=== PATIENT | male | born 1975 ===

== ENCOUNTER 2017-11-13 12:29 | Emergency (ER) | payer OTHER ==
[2017-11-13 12:47] VITALS: BP 144/94; PULSE 80; RESP 16; TEMP 98.1; O2SAT 98
--- NOTE | 2017-11-13 14:26 | ED PDOC ---
HPI: Abdomen Time Seen by Provider: 11/13/17 13:12 Chief Complaint (Nursing): Abdominal Pain Chief Complaint (Provider): Abdominal Pain, Testicular Pain History Per: Patient History/Exam Limitations: no limitations Onset/Duration Of Symptoms: Days (x6) Current Symptoms Are (Timing): Still Present Additional Complaint(s): 42 y/o male with a PMHx of diabetes and asthma presenting for evaluation of bilateral testicular pain and superpubic discomfort x6 days. Patient denies any hematuria, dysuria, fever, discharge, nausea, vomiting, or history of STDs. PMD: [facility] Past Medical History Reviewed: Historical Data, Nursing Documentation, Vital Signs Vital Signs: Last Vital Signs Temp 98.1 F 11/13/17 12:44 Pulse 80 11/13/17 12:44 Resp 16 11/13/17 12:44 BP 144/94 H 11/13/17 12:44 Pulse Ox 98 11/13/17 16:26 - Medical History PMH: Asthma, Depression - Surgical History Surgical History: No Surg Hx - Family History Family History: States: Unknown Family Hx - Social History Current smoker - smoking cessation education provided: No Alcohol: Occasional Drugs: Denies - Allergies Allergies/Adverse Reactions: Allergies Allergy/AdvReac Type Severity Reaction Status Date / Time No Known Allergies Allergy Verified 11/13/17 12:44 Review of Systems ROS Statement: Except As Marked, All Systems Reviewed And Found Negative Constitutional: Negative for: Fever Gastrointestinal: Positive for: Abdominal Pain. Negative for: Nausea, Vomiting Genitourinary Male: Positive for: Other (testicular pain). Negative for: Dysuria, Hematuria, Penile Discharge Physical Exam - Reviewed Nursing Documentation Reviewed: Yes Vital Signs Reviewed: Yes - Physical Exam Appears: Positive for: Non-toxic, No Acute Distress Head Exam: Positive for: ATRAUMATIC, NORMAL INSPECTION, NORMOCEPHALIC Skin: Positive for: Normal Color, Warm, Dry. Negative for: Rash Eye Exam: Positive for: EOMI, Normal appearance, PERRL Neck: Positive for: Normal, Painless ROM, Supple Cardiovascular/Chest: Positive for: Regular Rate, Rhythm. Negative for: Murmur Respiratory: Positive for: Normal Breath Sounds. Negative for: Respiratory Distress Gastrointestinal/Abdominal: Positive for: Normal Exam, Soft. Negative for: Tenderness Male Genital Exam: Positive for: other (mild testicular swelling, uncircumcised penis). Negative for: erythema, urethral discharge Back: Positive for: Normal Inspection. Negative for: L CVA Tenderness, R CVA Tenderness, Vertebral Tenderness Extremity: Positive for: Normal ROM. Negative for: Pedal Edema, Deformity Neurologic/Psych: Positive for: Alert, Oriented (x3). Negative for: Motor/ Sensory Deficits - Laboratory Results Result Diagrams: 11/13/17 14:47 11/13/17 14:47 - ECG O2 Sat by Pulse Oximetry: 98 (RA) Pulse Ox Interpretation: Normal Medical Decision Making Medical Decision Makin:02 Plan: -CMP -CBC -Urine C&S -Urinalysis -US Testes Duplex Complete -Reevaluation 15:45 US TESTES DUPLEX FINDINGS: RIGHT TESTICLE: Measures 4.1 x 3.7 x 2.1 cm. Normal echotexture and flow. RIGHT EPIDIDYMIS: Epididymal head measures 0.8 x 0.7 x 0.8 cm. Grossly unremarkable appearance with normal flow. LEFT TESTICLE: Measures 4.1 x 3.4 x 2.3 cm. Normal echotexture and flow. LEFT EPIDIDYMIS: Epididymal head measures 1.0 x 1.4 x 1.1 cm. There is a 1.0 x 1.2 by a 0.6 cm simple cyst in the head of the epididymis, otherwise the epididymis is grossly appearance with normal flow. HYDROCELE: There is a small right hydrocele. No left hydrocele. VARICOCELE: None. OTHER FINDINGS: None. IMPRESSION: No evidence for testicular mass or torsion. Small right hydrocele. 1.2 cm simple cyst in the head of the left epididymis. 17:45 CT ABDOMEN AND PELVIS FINDINGS: LOWER THORAX: The visualized lungs are clear. LIVER: Normal in size. No intrahepatic ductal dilatation. GALLBLADDER AND BILE DUCTS: No calcified gallstones. No biliary dilatation PANCREAS: Normal in size. No ductal dilatation. SPLEEN: Normal in size. ADRENALS: Normal in size. No discrete nodule. KIDNEYS AND URETERS: Normal in size without nephrolithiasis. No hydronephrosis. VASCULATURE: No aortic aneurysm. BOWEL: The small bowel loops are normal in caliber. There is large amount of stool in the colon. No bowel dilatation or wall thickening. No bowel obstruction. APPENDIX: Normal appendix. PERITONEUM: No free fluid. No free air. LYMPH NODES: No enlarged lymph nodes. BLADDER: Well distended and grossly normal in appearance. REPRODUCTIVE: The uterus is normal in size BONES: No acute fracture. OTHER FINDINGS: None. IMPRESSION: No acute abdominal or pelvic abnormality. Constipation. No evidence for bowel obstruction. Scribe Attestation: Documented by Alfredo Jasso, acting as a scribe for Ludy Noonan MD. Provider Scribe Attestation: All medical record entries made by the Scribe were at my direction and personally dictated by me. I have reviewed the chart and agree that the record accurately reflects my personal performance of the history, physical exam, medical decision making, and the department course for this patient. I have also personally directed, reviewed, and agree with the discharge instructions and disposition. Disposition - Clinical Impression Clinical Impression: Abdominal pain - Disposition Condition: IMPROVED Additional Instructions: follow up with the clinic in 2 days for reevaluation eat high fiber diet follow up with urologist for testicular pain return to ED with any worsening or concerning symptoms Instructions: Hydrocele, Constipation, Adult (DC) Forms: [employer] (Citizen [place]) Print Language: KAZAKH
[2017-11-13 14:56] LABS: BASO # 0.1 K/uL (0.0-0.2); EOS # 0.1 K/uL (0.0-0.7); EOS % 1.7 % (0.0-4.0); HEMOGLOBIN 14.6 g/dL (12.0-18.0); LYMPH # 1.7 K/uL (1.0-4.3); LYMPH % 23.7 % (20.0-40.0); MEAN CELL VOLUME 88.5 fl (80.0-94.0); MEAN CORPUSCULAR HEMOGLOBIN 31.1 pg (27.0-31.0); MEAN CORPUSCULAR HGB CONC 35.1 g/dL (33.0-37.0); MEAN PLATELET VOLUME 9.6 fl (7.2-11.7); MONO # 0.3 K/uL (0.0-0.8); MONO % 4.9 % (0.0-10.0); NEUT # 4.9 K/uL (1.8-7.0); NEUT % 68.7 % (50.0-75.0); NRBC % 0.1 % (0.0-0.0); RBC 4.68 Mil/uL (4.40-5.90); RED CELL DISTRIBUTION WIDTH 12.2 % (11.5-14.5); WHITE BLOOD COUNT 7.1 K/uL (4.8-10.8)
[2017-11-13 15:06] LABS: ALB/GLOB RATIO 1.3 (1.0-2.1); ALBUMIN 4.5 g/dL (3.5-5.0); ALT/SGPT 45 U/L (21-72); AST/SGOT 34 U/L (17-59); BLOOD UREA NITROGEN 19 mg/dl (9-20); CALCIUM 9.2 mg/dL (8.4-10.2); GFR AFRICAN-AMERICAN > 60; GFR NON-AFRICAN AMERICAN > 60
[2017-11-13 15:08] LABS: URINE BILIRUBIN NEGATIVE (NEGATIVE); URINE BLOOD NEGATIVE (NEGATIVE); URINE CLARITY SLIGHTY-CLOUDY (Clear); URINE COLOR YELLOW (YELLOW); URINE GLUCOSE (UA) 50 mg/dL (Normal); URINE LEUKOCYTE ESTERASE NEG Leu/uL (Negative); URINE PROTEIN NEGATIVE (NEGATIVE)
--- NOTE | 2017-11-13 15:47 | US ---
Date of service: 11/13/2017 HISTORY: bilateral testicular pain TECHNIQUE: Realtime sonography through the scrotum with color and doppler flow. COMPARISON: None Available. FINDINGS: RIGHT TESTICLE: Measures 4.1 x 3.7 x 2.1 cm. Normal echotexture and flow. RIGHT EPIDIDYMIS: Epididymal head measures 0.8 x 0.7 x 0.8 cm. Grossly unremarkable appearance with normal flow. LEFT TESTICLE: Measures 4.1 x 3.4 x 2.3 cm. Normal echotexture and flow. LEFT EPIDIDYMIS: Epididymal head measures 1.0 x 1.4 x 1.1 cm. There is a 1.0 x 1.2 by a 0.6 cm simple cyst in the head of the epididymis, otherwise the epididymis is grossly appearance with normal flow. HYDROCELE: There is a small right hydrocele. No left hydrocele. VARICOCELE: None. OTHER FINDINGS: None. IMPRESSION: No evidence for testicular mass or torsion. Small right hydrocele. 1.2 cm simple cyst in the head of the left epididymis.
--- NOTE | 2017-11-13 17:46 | CT ---
Date of service: 11/13/2017 PROCEDURE: CT Abdomen and Pelvis without intravenous contrast HISTORY: Lower abdominal pain COMPARISON: None. TECHNIQUE: CT scan of the abdomen and pelvis was performed without administration of intravenous contrast. Oral contrast was not administered. Coronal and sagittal reformatted images were obtained. . Radiation dose: Total exam DLP = 2401.44 mGy-cm. This CT exam was performed using one or more of the following dose reduction techniques: Automated exposure control, adjustment of the mA and/or kV according to patient size, and/or use of iterative reconstruction technique. FINDINGS: LOWER THORAX: The visualized lungs are clear. LIVER: Normal in size. No intrahepatic ductal dilatation. GALLBLADDER AND BILE DUCTS: No calcified gallstones. No biliary dilatation PANCREAS: Normal in size. No ductal dilatation. SPLEEN: Normal in size. ADRENALS: Normal in size. No discrete nodule. KIDNEYS AND URETERS: Normal in size without nephrolithiasis. No hydronephrosis. VASCULATURE: No aortic aneurysm. BOWEL: The small bowel loops are normal in caliber. There is large amount of stool in the colon. No bowel dilatation or wall thickening. No bowel obstruction. APPENDIX: Normal appendix. PERITONEUM: No free fluid. No free air. LYMPH NODES: No enlarged lymph nodes. BLADDER: Well distended and grossly normal in appearance. REPRODUCTIVE: The uterus is normal in size BONES: No acute fracture. OTHER FINDINGS: None. IMPRESSION: No acute abdominal or pelvic abnormality. Constipation. No evidence for bowel obstruction.
== END 2017-11-13 14:24 | disposition home or self-care (01) ==
LOC: H.ER 12:29
DX: R10.9 Unspecified abdominal pain (principal); N50.819 Testicular pain, unspecified; N43.3 Hydrocele, unspecified; K59.00 Constipation, unspecified